=== PATIENT | female | born 1955 ===

== ENCOUNTER 2017-03-17 11:01 | Emergency (ER) | payer MEDICAID ==
--- NOTE | 2017-03-17 11:45 | UC ---
Skin Complaint HPI - History of Current Complaint Chief Complaint: UCSkin Time Seen by Provider: 03/17/17 11:02 Stated Complaint: TICK BITE Hx Obtained From: Patient Onset/Duration: Sudden Onset - scratched near right ear last pm in the dark and felt a bug and "squished it". not sure if it was a tick but very concerned it could have been as sh eis sleeping outside at a retreat. Skin Exposure Onset/Duration: Hours Ago Onset Severity: Mild Current Severity: Mild Location: Ear (Left) Aggravating: Nothing Alleviating: Nothing Associated Signs & Symptoms: Positive: Negative Related History: Insect Bite/Sting - Allergy/Home Medications Allergies/Adverse Reactions: Allergies Allergy/AdvReac Type Severity Reaction Status Date / Time No Known Allergies Allergy Verified 03/17/17 11:28 Home Medications: Home Medications Thyroid [[place] Thyroid] 15 mg PO DAILY 03/17/17 [History Confirmed 03/17/17] Review of Systems Constitutional: Negative Skin: Other - bug bite Respiratory: Negative Cardiovascular: Negative Psychological: Negative All Other Systems Reviewed And Are Negative: Yes PMH/Surg Hx/FS Hx/Imm Hx Previously Healthy: Yes Endocrine History: Hypothyroidism Neurological History: Other - fibromyalgia Other Neurological History: fibromyalgia - Surgical History Surgical History: None - Family History Known Family History: Positive: None - Social History Occupation: Unemployed Lives: With Family Alcohol Use: None Substance Use Type: None Smoking Status (MU): Never Smoked Tobacco Physical Exam Triage Information Reviewed: Yes Appearance: Well-Appearing, No Pain Distress, Well-Nourished Vital Signs: Initial Vital Signs Temp 97.9 F 03/17/17 11:18 Pulse 83 03/17/17 11:18 Resp 18 03/17/17 11:18 BP 125/71 03/17/17 11:18 Pulse Ox 100 03/17/17 11:18 Vital Signs Reviewed: Yes Eyes: Positive: Conjunctiva Clear Respiratory Exam: Normal Cardiovascular Exam: Normal Neurological Exam: Normal Neurological: Positive: Alert Psychological Exam: Normal - but very nervous about possible exposure to Lyme disease Skin: Positive: Other - small 2mm circular erythemic justin on face at border L ear. no evidence swelling or PW Course/Dx - Differential Diagnoses - Skin Complaint Differential Diagnoses: Other - insect bite - Diagnoses Provider Diagnoses: insect bite Discharge - Discharge Plan Condition: Good Disposition: HOME Prescriptions: DOXYcycline CAP(*) [DOXYcycline 100MG CAP(*)] 100 mg PO ONCE #2 cap Patient Education Materials: Tick Bite (ED), Lyme Disease (ED) Referrals: No Primary Care Phys,NOPCP [Primary Care Provider] - Additional Instructions: take 2 doxycycline pills today recheck at your provider if symptoms no better in 2 days
== END 2017-03-17 11:51 | disposition home or self-care (01) ==
LOC: UCEAST 11:01
DX: S00.86XA Insect bite (nonvenomous) of other part of head, initial encounter (principal); W57.XXXA Bitten or stung by nonvenomous insect and other nonvenomous arthropods, initial encounter; Y93.84 Activity, sleeping; Y92.89 Other specified places as the place of occurrence of the external cause; Y99.9 Unspecified external cause status; E03.9 Hypothyroidism, unspecified; M79.7 Fibromyalgia
CPT/HCPCS: 99202; G0463